=== PATIENT | female | born 2000 | race Two or more races ===

== ENCOUNTER 2025-08-22 14:13 | Inpatient (IN) | payer OTHER ==
[~2025-08-22] VITALS: Ht 162.6 cm; Wt 79.8 kg
[2025-08-22 13:41] VITALS: BP 119/71
[2025-08-22] MEDS ORDERED: PRENATAL TABLE1 EAC1 PO (14:36)
[2025-08-22] MEDS ORDERED: RINGERS SOLUTION,LACTATED 1,000 ML IV SCH (14:45)
[2025-08-22 15:12] VITALS: BP 137/76
[2025-08-22 15:38] LABS: URINE APPEARANCE Cloudy; URINE BILIRRUBIN Negative (NEGATIVE); URINE BLOOD Negative; URINE COLOR Yellow; URINE GLUCOSE Negative (NEGATIVE); URINE KETONE Trace (NEGATIVE); URINE LEUKOCYTE Trace; URINE NITRATE Negative; URINE PROTEIN 30 (NEGATIVE); URINE UROBILINOGEN 1.0 E.U./dl
[2025-08-22 15:42] LABS: URINE EPITHELIAL CELLS 101.9 uL (0.0-38.8); URINE RBC 13.6 uL (0.0-20.8); URINE WBC 41.0 uL (0.0-23.2)
[2025-08-22 15:52] LABS: URINE CAST 0.43 uL (0.0-1.40); URINE CRYSTALS FEW /HPF
[2025-08-22 16:10] LABS: BASO % 0.3 % (0.1-1.2); EOS # 0.06 (0.04-0.54); EOS % 1.0 % (0.7-7.0); LYMPH # 1.03 (1.18-3.74); LYMPH % 16.6 % (19.3-53.1); MEAN PLATELET VOLUME 10.20 fl (9.4-12.4); MONO # 0.54 (0.24-0.82); MONO % 8.7 % (4.7-12.5); NEUT # 4.50 (1.56-6.13); NEUT % 72.3 % (34.0-71.1); RED CELL DISTRIBUTION WIDTH 13.0 % (11.6-14.4)
[2025-08-22 19:02] VITALS: BP 120/74
[2025-08-22] MEDS ORDERED: MORPHINE SULFATE 4 MG/ML CARTRIDGE IV ONE (19:30)
[2025-08-22 23:24] VITALS: BP 129/79
[2025-08-23] VITALS (10 sets, daily range): BP systolic 105–144; BP diastolic 60–87; O2SAT 100
[2025-08-23] MEDS ORDERED: MORPHINE SULFATE 4 MG/ML CARTRIDGE IV ONE (01:00)
[2025-08-23 01:40] LABS: INR < 0.93
[2025-08-23 02:05] LABS: ALT/SGPT 26.0 U/L (12-78); AST/SGOT 20.0 U/L (15-37); BILIRUBIN TOTAL 0.76 mg/dL (0.3-1.2); BUN CREA RATIO 13.0 (7.0-25.0); CREATININE SERUM 0.52 mg/dL (0.55-1.02); GFR 143.68; GLOBULINA 3.3 G/DL (2.4-3.5); GLUCOSE FASTING 85.0 mg/dL (65-100); OSMOLALITY SERUM 278.0 MOSM/KG (275-295)
[2025-08-23] MEDS ORDERED: OXYTOCIN 500 ML IV SCH ×2 (06:45→16:00)
[2025-08-23] MEDS ORDERED: MORPHINE SULFATE 4 MG/ML CARTRIDGE IV STA (07:12)
[2025-08-23] MEDS ORDERED: CHLORHEXIDINE GLUCONATE 120 ML BOTTLE TOP ONE ×2 (07:32→16:00)
[2025-08-23] MEDS ORDERED: OXYTOCIN 20 UNITS/1000ML RL PIGGYBAG IV ONE (07:32)
[2025-08-23] MEDS ORDERED: LIDOCAINE HCL 1% 10ML VIAL ONE (07:32)
[2025-08-23] MEDS ORDERED: ERYTHROMYCIN BASE OPHT 1GM EACH TUBE OP ONE ×2 (07:32→16:00)
[2025-08-23] MEDS ORDERED: ACETAMINOPHEN 500 MG GEL..CAP PO PRN (16:00)
[2025-08-23] MEDS ORDERED: LIDOCAINE HCL 1% 10ML VIAL IJ ONE (16:00)
[2025-08-23] MEDS ORDERED: HYDROCORTISONE 2.5% 30 GM TUBE RECTAL SCH (17:00)
[2025-08-23] MEDS ORDERED: BENZOCAINE/MENTHOL 90 ML BOTTLE TOP SCH (17:00)
[2025-08-23] MEDS ORDERED: OXYTOCIN 20 UNITS/1000ML RL PIGGYBAG IV SCH (17:15)
[2025-08-24 01:03] LABS: BASO % 0.2 % (0.1-1.2); EOS # 0.01 (0.04-0.54); EOS % 0.1 % (0.7-7.0); LYMPH # 1.09 (1.18-3.74); LYMPH % 6.9 % (19.3-53.1); MEAN PLATELET VOLUME 10.20 fl (9.4-12.4); MONO # 1.24 (0.24-0.82); MONO % 7.8 % (4.7-12.5); NEUT # 13.37 (1.56-6.13); NEUT % 84.4 % (34.0-71.1); RED CELL DISTRIBUTION WIDTH 13.1 % (11.6-14.4)
[2025-08-24 08:20] VITALS: BP 107/75
[2025-08-24 16:55] VITALS: BP 118/78
[2025-08-25 00:54] VITALS: BP 120/78
[2025-08-25 03:00] VITALS: BP 117/73
[2025-08-25 08:00] VITALS: BP 120/77
== END 2025-08-25 12:37 | disposition home or self-care (01) | DRG 807 ==
LOC: OBS/DEL 14:13 → LDR 08-23 00:57 → OB/GYN 08-23 16:28
PROVIDERS: Obstetrics & Gynecology; ADMIT Specialist; ATTEND Specialist
PROC: 10E0XZZ Delivery of Products of Conception, External Approach (ICD-10-PCS; principal; 2025-08-23)
PROC: 0UQG7ZZ Repair Vagina, Via Natural or Artificial Opening (ICD-10-PCS; 2025-08-23)
PROC: 4A1HXCZ Monitoring of Products of Conception, Cardiac Rate, External Approach (ICD-10-PCS; 2025-08-23)
DX: O71.4 Obstetric high vaginal laceration alone (principal); Z37.0 Single live birth; Z3A.38 38 weeks gestation of pregnancy